=== PATIENT | female | born 1955 | race Caucasian/White ===

== ENCOUNTER → 2018-05-13 | Outpatient (CLI) | payer MEDICARE, OTHER ==
[~2018-05-13] MED LIST: ALBU8.5H8 INH; ATEN100T PO; BACL-19 PO; CLON1TAB11 PO; DEXT10TA7 PO; ESTR1PAT25 TD; FENO54TA17 PO; FLUC150T2 PO; FLUT16SP IH; FLUT1DIS3 IH; GADOBUTROL 7.5 MMOL/7.5 ML PFS ONE; HYDR-3245 PO; LIOT25TA3 PO; MORP15TA PO; PRAV20TA2 PO; SERT100T5 PO; TRIA1CAP3 PO; [UNRECOGNIZED DRUG - OTHER] PO
== END | disposition home or self-care (01) ==
LOC: CFH 13:10
PROVIDERS: ATTEND Registered Nurse
DX: G62.9 Polyneuropathy, unspecified (principal)
CPT/HCPCS: 70553; A9585

== ENCOUNTER 2019-07-02 08:36 | Outpatient (CLI) | payer MEDICARE, OTHER ==
[~2019-07-02 08:36] MED LIST changes: -FLUT16SP IH; +FLUT16SP24 IH; -GADOBUTROL 7.5 MMOL/7.5 ML PFS ONE; +LIOT25TA12 PO; -LIOT25TA3 PO; +SERT100T32 PO; -SERT100T5 PO
== END 2019-07-02 23:59 | disposition home or self-care (01) ==
LOC: CFH 08:36
PROVIDERS: ATTEND Internal Medicine Cardiovascular Disease
DX: Z13.6 Encounter for screening for cardiovascular disorders (principal); E78.2 Mixed hyperlipidemia
CPT/HCPCS: 75571

== ENCOUNTER → 2020-05-04 | Outpatient (CLI) | payer MEDICARE ==
[~2020-05-04] MED LIST changes: +ASCO500C2 PO; +ASPI81TA45 PO; +BUSP15TA PO; +CARV6.252 PO; +CHOL500015 PO; +CLIN150C14 PO; +CYAN1TAB29 PO; +FENO145T19 PO; +FLUT9.9S NS; +GABA-826 PO; +HYDR-3622 PO; +HYDR25TA6 PO; +Iron PO; +LAMO100T8 PO; +LEVO100T PO; +LEVO5TAB29 PO; +LIDO35.46 TP; +LOSA100T14 PO; +MODA100T2 PO; +MV-M1TAB52 PO; +OXYC-306 PO; +PANT40TA6 PO
[2020-05-04 12:37] LABS: ALBUMIN 3.9 g/dL (3.4-5.0); ANION GAP 4 mmol/L (5-15); CALCIUM 9.6 mg/dL (8.5-10.1); CHLORIDE 105 mmol/L (98-107)
[2020-05-04 12:40] LABS: ALANINE AMINOTRANSFERASE 26 U/L (12-78); ALKALINE PHOSPHATASE 59 U/L (45-117); BILIRUBIN,TOTAL 0.3 mg/dL (0.2-1.0); TOTAL PROTEIN 7.3 g/dL (6.4-8.2)
== END | disposition home or self-care (01) ==
LOC: STAR 10:58
PROVIDERS: ATTEND Orthopaedic Surgery
DX: Z01.818 Encounter for other preprocedural examination (principal); Z20.828 Contact with and (suspected) exposure to other viral communicable diseases; S46.011A Strain of muscle(s) and tendon(s) of the rotator cuff of right shoulder, initial encounter; M75.41 Impingement syndrome of right shoulder; M19.011 Primary osteoarthritis, right shoulder; X58.XXXA Exposure to other specified factors, initial encounter; Y93.89 Activity, other specified; Y92.89 Other specified places as the place of occurrence of the external cause; Y99.8 Other external cause status
CPT/HCPCS: 36415; 80053; 87635; 93005

== ENCOUNTER 2020-05-10 08:51 | Day surgery (SDC) | payer MEDICARE ==
[~2020-05-10] VITALS: Ht 152.4 cm; Wt 74.5 kg
[~2020-05-10 08:51] MED LIST changes: +BUPIVACAINE/PF 0.25% ONE
[2020-05-10] MEDS ORDERED: CHLORHEXIDINE 15 ML UDC MM ONE (09:30)
[2020-05-10 09:40] VITALS: BP 142/75
[2020-05-10] MEDS ORDERED: FENTANYL PF 250 MCG/5ML ONE (09:49)
[2020-05-10] MEDS ORDERED: LACTATED RINGERS 1,000 ML IV SCH (10:00)
[2020-05-10] MEDS ORDERED: NEOSTIGMINE 1 MG/ML, 10ML ONE (10:26)
[2020-05-10] MEDS ORDERED: GLYCOPYRROLATE 0.2MG/1ML, 5ML ONE (10:26)
[2020-05-10] MEDS ORDERED: KETOROLAC 30 MG/1 ML ONE (10:26)
[2020-05-10] MEDS ORDERED: CEFAZOLIN 1,000 MG ONE (10:26)
[2020-05-10] MEDS ORDERED: LIDOCAINE 2%, 20ML ONE (10:26)
[2020-05-10] MEDS ORDERED: ROCURONIUM 10 MG/ML,10ML ONE (10:26)
[2020-05-10] MEDS ORDERED: SUCCINYLCHOLINE 20 MG/ML, 10ML ONE (10:26)
[2020-05-10] MEDS ORDERED: PROPOFOL 50 ML ONE (10:39)
[2020-05-10] MEDS ORDERED: OXYcodone 5 MG/5 ML ORAL.SOL UDC PO PRN (11:00)
[2020-05-10] MEDS ORDERED: FENTANYL PF 100 MCG/2ML IV PRN (11:00)
[2020-05-10] MEDS ORDERED: HALOPERIDOL 5 MG/ML IV PRN (11:00)
[2020-05-10] MEDS ORDERED: MEPERIDINE/PF 25MG/0.5ML IVPush PRN (11:00)
[2020-05-10] MEDS ORDERED: PROMETHAZINE 25 MG/ML, 1ML IVPush PRN (11:00)
[2020-05-10] MEDS ORDERED: METHOCARBAMOL 1,000 MG in DEXTROSE 5% 100 ML IV PRN (11:00)
[2020-05-10] MEDS ORDERED: ONDANSETRON 2MG/ML, 2ML IVPush PRN (11:00)
[2020-05-10] MEDS ORDERED: KETOROLAC 30 MG/1 ML IV PRN (11:00)
[2020-05-10] MEDS ORDERED: HYDROmorphone 1 MG/ML, 1ML INJ IVPush PRN (11:00)
[2020-05-10] MEDS ORDERED: ACETAMINOPHEN 325 MG TABLET PO PRN (11:00)
[2020-05-10] MEDS ORDERED: hydrALAzine 20 MG/ML, 1ML IV PRN (11:00)
[2020-05-10] MEDS ORDERED: LABETALOL 5MG/ML, 20ML IV PRN (11:00)
[2020-05-10] MEDS ORDERED: EPHEDRINE 50 MG/ML, 1ML IVPush PRN (11:00)
== END 2020-05-10 14:30 | disposition home or self-care (01) ==
LOC: OUT 08:51
PROVIDERS: ATTEND Orthopaedic Surgery
DX: S46.011A Strain of muscle(s) and tendon(s) of the rotator cuff of right shoulder, initial encounter (principal); S43.431A Superior glenoid labrum lesion of right shoulder, initial encounter; M75.41 Impingement syndrome of right shoulder; M19.011 Primary osteoarthritis, right shoulder; G89.18 Other acute postprocedural pain; I10 Essential (primary) hypertension; K21.9 Gastro-esophageal reflux disease without esophagitis; E78.5 Hyperlipidemia, unspecified; M79.7 Fibromyalgia; E07.89 Other specified disorders of thyroid; M81.0 Age-related osteoporosis without current pathological fracture; J44.9 Chronic obstructive pulmonary disease, unspecified; Z79.82 Long term (current) use of aspirin; Z79.890 Hormone replacement therapy; Z79.891 Long term (current) use of opiate analgesic; Z79.899 Other long term (current) drug therapy; Z88.0 Allergy status to penicillin; Z88.2 Allergy status to sulfonamides; Z88.8 Allergy status to other drugs, medicaments and biological substances; Z90.722 Acquired absence of ovaries, bilateral; Z90.710 Acquired absence of both cervix and uterus; Z90.89 Acquired absence of other organs; Z98.890 Other specified postprocedural states; X58.XXXA Exposure to other specified factors, initial encounter; Y93.89 Activity, other specified; Y92.89 Other specified places as the place of occurrence of the external cause; Y99.8 Other external cause status
CPT/HCPCS: 29823; 29824; 29826; 29827; 64415; C1713; C1763; J0330; J0690; J1885; J2704; J2710; J3010; J7120

== ENCOUNTER 2020-12-06 11:08 | Emergency (ER) | payer MEDICARE ==
[~2020-12-06] VITALS: Ht 154.9 cm; Wt 75.2 kg
[~2020-12-06 11:08] MED LIST changes: -BUPIVACAINE/PF 0.25% ONE; -CLIN150C14 PO; +CLIN150C15 PO; -HYDR-3245 PO; +HYDR1TAB53 PO; -OXYC-306 PO; +OXYC1TAB17 PO
--- NOTE | 2020-12-06 11:30 | NUR ---
PT PRESENTS TO ED WITH C/O LOC RESULTING IN GLF ON FRIDAY. ALSO C/O BILATERAL LE SWELLING SINCE FRIDAY. SLIGHT ERYTHEMA NOTED TO FOREHEAD FROM FALL, DENIES ANY OTHER TRAUMA OR MIDLINE CERVICAL TENDERNESS. BILATERAL LE SWELLING NOTED. PT A&O, RESPS EVEN AND UNLABORED, VSS, NADN. ERPA POONAM AT BEDSIDE FOR EVAL.
--- NOTE | 2020-12-06 12:00 | NUR ---
PRECEPTOR RN NOTE: PT TO CT, NADN AT TRANSPORT.
[2020-12-06 12:34] LABS: BASOPHILS % (AUTO) 1 % (0-1); EOSINOPHILS % (AUTO) 3 % (1-7); LYMPHOCYTES % (AUTO) 15 % (22-44); MEAN CORPUSCULAR HEMOGLOBIN 29.1 pg (27.0-34.8); MEAN CORPUSCULAR HGB CONC 33.6 g/dL (32.4-35.8); MEAN PLATELET VOLUME 7.2 fL (7.4-10.4); MONOCYTES % (AUTO) 9 % (2-9); NEUTROPHILS % (AUTO) 72 % (42-75); PLATELET COUNT 587 x10^3/uL (130-400); RED BLOOD COUNT 3.84 x10^6/uL (3.82-5.3); RED CELL DISTRIBUTION WIDTH 15.4 % (9.6-15.2)
[2020-12-06 12:35] LABS: MD NO
[2020-12-06 12:45] LABS: ALANINE AMINOTRANSFERASE 25 U/L (12-78); ALBUMIN 2.7 g/dL (3.4-5.0); ANION GAP 4 mmol/L (5-15); CALCIUM 8.7 mg/dL (8.5-10.1); CHLORIDE 106 mmol/L (98-107); CREATININE 0.55 mg/dL (0.55-1.02)
[2020-12-06 12:50] LABS: ALKALINE PHOSPHATASE 114 U/L (45-117); BILIRUBIN,TOTAL 0.3 mg/dL (0.2-1.0); TOTAL PROTEIN 6.1 g/dL (6.4-8.2); TROPONIN I < 0.015 ng/mL (0.000-0.045)
--- NOTE | 2020-12-06 13:17 | NUR ---
PT RESTING ON GURNEY, A&O, RESPS EVEN AND UNLABORED, NSR ON [employer] WITH NO ECTOPY. NEURO INTACT. PT C/O GENERALIZED PAIN 12/21, STATES THIS IS CHRONIC D/T BACK SURGERY. ALL RESULTS BACK, CHART UP FOR RECHECK, AWAITING MD AND DISPO.
--- NOTE | 2020-12-06 14:03 | NUR ---
PIV PLACED TO LEFT UPPER ARM, FLUSHED WITH 30ML NS, NO S/SX INFILTRATION, PIV HAS EXCELLENT BLOOD RETURN. PT IS A&O, RESPS EVEN AND UNLABORED, NSR ON INSURANCE RATER WITH NO ECTOPY. PT TAKEN TO CT AT THIS TIME.
--- NOTE | 2020-12-06 14:07 | NUR ---
PRECEPOR RN NOTE: PT HAD BACK SURGERY APPROX 2 WEEKS AGO, ELIANE GONCALVES HAS VISUALIZED INCISION SITES (TO BACK AND ABDOMEN), DARKE AND SURGICAL DRESSINGS IN PLACE. ELIANE GONCALVES SPOKE WITH PT'S SURGICAL LABORER PIE BAKERY WHO INSTRUCTED ELIANE TO KEEP DRAKE IN PLACE, STATES REMOVAL SHOULD BE AT 3 WEEKS POST-OP.
[2020-12-06] MEDS ORDERED: OMNIPAQUE 350 MG/ML, 75ML BOTTLE ONE (14:13)
--- NOTE | 2020-12-06 14:13 | NUR ---
ISLAND DRESSINGS REQUESTED FROM SURGICAL FLOOR TO REDRESS SURGICAL WOUNDS PER EDMD INSTRUCTIONS.
[2020-12-06 16:04] VITALS: BP 168/81
--- NOTE | 2020-12-06 16:11 | NUR ---
ISLAND DRESSING PLACED PER ORDER, DISCHARGE INSTRUCTIONS REVIEWED, PT VERBALIZED UNDERSTANDING. AMBULATORY TO DISCHARGE WITH STEADY GAIT, ACCOMPANIED BY SISTER. NO COMPLAINTS AT DISCHARGE.
== END 2020-12-06 16:13 | disposition home or self-care (01) ==
LOC: ED 14:26
DX: S06.9X1A Unspecified intracranial injury with loss of consciousness of 30 minutes or less, initial encounter (principal); M25.552 Pain in left hip; R60.0 Localized edema; M54.2 Cervicalgia; W01.0XXA Fall on same level from slipping, tripping and stumbling without subsequent striking against object, initial encounter; Y93.89 Activity, other specified; Y92.009 Unspecified place in unspecified non-institutional (private) residence as the place of occurrence of the external cause; Y99.8 Other external cause status
CPT/HCPCS: 36415; 70450; 71045; 71275; 72125; 73502; 80053; 83880; 84484; 85025; 99285; Q9967